=== PATIENT | male | born 1965 | race Caucasian/White ===

== ENCOUNTER → 2021-01-23 16:00 | Outpatient (CLI) | payer OTHER, SELFPAY ==
--- NOTE | ~2021-01-23 | XR_ITS ---
XR hip RT 2V w AP pelvis DATE: 01/23/2021 16:14 INDICATION: Right hip pain for years TECHNIQUE: AP pelvis. AP and lateral views of right hip COMPARISON: None FINDINGS: No pelvic fracture or bone destruction. The pubic symphysis and sacroiliac joints are intac t. There is narrowing at the hip joints consistent with osteoarthritis. No fracture, dislocation, kamini scular necrosis or bone destruction of the right hip. IMPRESSION: Bilateral hip osteoarthritis Reviewed, dictated and finalized at location B.
== END ==
PROVIDERS: PCP Nurse Practitioner Family; Visit Provider Nurse Practitioner Family
DX: M16.0 Bilateral primary osteoarthritis of hip (principal)
CPT/HCPCS: 73502

== ENCOUNTER 2024-07-09 16:23 | Emergency (ER) | payer SELFPAY ==
[2024-07-09 16:32] VITALS: BP 141/92; PULSE 62; RESP 18; TEMP 36.8; O2SAT 99
--- NOTE | 2024-07-09 17:03 | ED_ITS ---
HPI - Skin/Abscess/Foreign Bdy General Chief complaint: Skin/Abscess/Foreign Body Stated complaint: Cat Bite on Right Thumb Time Seen by Provider: 07/09/24 17:04 Source: patient Mode of arrival: ambulatory Limitations: no limitations History of Present Illness HPI narrative: 58-year-old male presented for complaint of redness, swelling, and pain following a cat bite to the left thumb sustained about 1 week ago. Endorses the redness and swelling has slowly increased over the week and now has slight decreased range of motion. Has not taken anything for symptoms. Denies nausea, vomiting, diarrhea, fevers chills. The Cat was his sister's farm cat. Related Data Allergies Allergy/AdvReac Type Severity Reaction Status Date / Time oxycodone (From OxyContin) Allergy Mild Hallucinati Verified 07/09/24 16:45 ng Review of Systems 2 Review of Systems: CONSTITUTIONAL: Denies body aches, fever, chills, or sweats. EYES: Denies visual changes, redness, or discharge. ENT: Denies rhinorrhea, congestion CARDIOVASCULAR: Denies chest pain, palpitations, or edema. RESPIRATORY: Denies cough or dyspnea. GASTROINTESTINAL: Denies abdominal pain, nausea, vomiting, or diarrhea. SKIN: MUSCULOSKELETAL: Denies back pain, joint pain, or myalgia. NEUROLOGIC: Denies headache, numbness, tingling, or weakness. FOR[facility]LY [facility] Past Medical History Medical History (Updated 07/09/24 @ 17:13 by Julieth Acosta, BELLMAN) Mixed hyperlipidemia (12/04/23) total cholesterol 167, triglycerides 57, HDL 45, LDL 111 on 12/04/2023. Hypersomnia (~2021) [place] score 06/10/2023. Chronic right shoulder pain BMI 30.0-30.9,adult Obesity (BMI 30.0-34.9) BMI 29.0-29.9,adult Overweight (BMI 25.0-29.9) Pain in right ankle Acute non-recurrent maxillary sinusitis Right knee pain Hypertension Anxiety Moderate major depression, single episode Right hip pain Colon cancer screening normal colonoscopy 02/29/2020 with recheck in 10 years [facility] Tinnitus Encounter for wellness examination in adult Encounter for prostate cancer screening PSA 1.4 on01/19/21. PSA 1.8 on 05/15/2022. PSA 1.2 on 12/04/2023. Family History Family History Grandparent Diabetes mellitus, Onset Age: 78 Family history of malignant neoplasm, Onset Age: 89 Mother Patient's mother is , Onset Age: 78 Sibling Patient's sister is , Onset Age: 54 Father Family history of renal failure, Onset Age: 72 Social History Social History (Updated 06/30/24 @ 11:34 by Johanna Adkins MA) Smoking status: Never smoker Alcohol intake: current Alcohol use details: daily 6-12 beers Substance use: never Substance use type: does not use Lack of Transportation: No Lack of Food: Never True Current Housing: I Have Housing Concerned About Future Housing: No Difficulty Paying Gas/Electric Bills: No Difficulty Paying for Meds: No Currently Unemployed: No Education: Bachelor's Degree Difficulty w/ Childcare or Family Care: No Comments At time of signature, I have reviewed and agree with nursing past medical, surgical, social and family history unless otherwise noted. Please see nursing chart for further information. There is no relevant family history pertinent to the presenting complaint Exam 2 Narrative: GENERAL: Well-appearing ENT: Mucous membranes moist. Oropharynx without edema, erythema or lesions. CHEST: Clear to auscultation. HEART: Regular rate and rhythm. SKIN: Warm, dry. Left thumb localized warmth and swelling to palmar aspect of MTP, tender with palpation; decreased ROM at the joint. No swelling or erythema to the dorsal aspect. <0.5cm abrasion to MTP dorsal aspect. No fluctuance or streaking. NEURO: Alert and oriented x3. Extrem: Hand/finger images: 1. area of erythema Course Course Emergency Course: Patient is aware of diagnosis, understands and agrees to treatment plan. Anticipatory guidance given. Patient agrees to follow-up as directed and is aware of reasons to seek care at the emergency department. Portions of this record may have been created with voice recognition software Level of Care: Express Care Visit Vital Signs Vital signs: Vital Signs Temperature 98.3 F 07/09/24 16:32 Pulse Rate 62 07/09/24 16:32 Respiratory Rate 18 07/09/24 16:32 Blood Pressure 141/92 H 07/09/24 16:32 Pulse Oximetry 99 07/09/24 16:32 Oxygen Delivery Room Air 07/09/24 16:32 Temperature 98.3 F 07/09/24 16:32 Pulse Rate 62 07/09/24 16:32 Respiratory Rate 18 07/09/24 16:32 Blood Pressure 141/92 H 07/09/24 16:32 Pulse Oximetry 99 07/09/24 16:32 Oxygen Delivery Room Air 07/09/24 16:32 Reviewed MDM - Skin/Abscess/Foreign Bdy MDM Narrative Medical decision making narrative: Discussed physical exam findings, offered ER however he states he would like to try oral abx first and if no improvement he will go to the ER as it has been a slow progression. Advised supportive measures and signs/symptoms to go to the ER. Pt is appropriate for outpt treatment and f/u. Differential Diagnosis Differential diagnosis: Likely abscess of skin or subcutaneous tissue, urticaria, herpes zoster, cellulitis and contact dermatitis Discharge Plan Discharge Clinical Impression: Cellulitis Patient Disposition: Home, Self-Care Condition: Stable Instructions: Antibiotic Form, Animal Bite (ED) Additional Instructions: You were advised to transfer to the ER and you decline at this time. Report to the ER immediately for any worsening symptoms. Take antibiotic as directed Keep the area clean and dry - cleanse with warm water and mild soap and allow to fully dry. Ok to apply neosporin to the site Tylenol as needed for pain Watch for worsening symptoms including pain, redness, swelling, streaking, pus/drainage, fever. Go to the ER with any of these symptoms or concerns. Follow up with primary care provider and Hand surgeon in 3 days. Patient Language: [place] Citizen Prescriptions: New amoxicillin-pot clavulanate 875-125 mg tablet 1 tablet PO Q12H 10 Days Qty: 20 0RF No Action alprazolam 0.25 mg tablet 0.25 mg PO BID PRN (Reason: anxiety) Qty: 60 1RF Rx Instructions: take 1/2 or 1 tablet up to twice daily for severe anxiety only. sildenafil (pulm.hypertension) 20 mg tablet See Rx Instructions PO ONCE Qty: 90 11RF Rx Instructions: take up to 5 tablets 1 hour before intercourse once daily as needed PO meloxicam 15 mg tablet 15 mg PO DAILY PRN (Reason: pain) Qty: 30 11RF metoprolol succinate 50 mg tablet extended release 24 hr 50 mg PO DAILY Qty: 90 3RF escitalopram oxalate [Lexapro] 20 mg tablet 20 mg PO DAILY Qty: 90 3RF Follow-up/Referrals: Eva Shultz MD [Physician] - (Cat bite left hand) Young Bailey MD [Primary Care Provider] - Time of Disposition: 17:14
== END 2024-07-09 17:26 | disposition home or self-care (01) ==
PROVIDERS: Emergency Provider Nurse Practitioner Family; PCP Family Medicine
DX: L03.012 Cellulitis of left finger (principal); I10 Essential (primary) hypertension; E78.2 Mixed hyperlipidemia; E66.9 Obesity, unspecified; Z68.27 Body mass index [BMI] 27.0-27.9, adult
CPT/HCPCS: 99213; G0463